=== PATIENT | female | born 1990 | race African-American/Black ===

== ENCOUNTER 2018-11-16 17:55 | Emergency (ER) | payer BC ==
--- NOTE | 2018-11-16 18:02 | PDOC ---
History of Present Illness - General Chief Complaint: Ear Problem Stated Complaint: FEVER & EAR PAIN Time Seen by Provider: 11/16/18 17:58 History Source: Patient Exam Limitations: No Limitations - History of Present Illness Initial Comments: 11/16/18 18:30 28 yo otherwise healthy F presents with 4 days of fevers, chills, myalgias, and sinus pressure that has progressed to left ear pressure, ringing, and pain. Was seen in urgent care the day of symptom start and discharged with fluticasone and z-pack for sinusitis. Pt has taken meds as directly but has felt no improvement in symptoms. Ear complaints are bilaterally but L > R. Pt states she uses sinus rinse with thick purulent mucus washed out. Endorses occasional dry nonproductive cough, mild lightheadedness, and some nausea. Lightheadedness and nausea has been improving. Denies sick contact, changes in vision, changes in mental status, chest pain, SOB, vomiting, abd pain, diarrhea, and dysuria. PMH: none MED: none NKDA Past History - Past Medical History Allergies/Adverse Reactions: Allergies Allergy/AdvReac Type Severity Reaction Status Date / Time amoxicillin Allergy Unknown Verified 11/16/18 17:57 Home Medications: Ambulatory Orders Azithromycin [Zithromax -] 250 mg PO UTDICT 11/16/18 Fluticasone Prop 0.05% Nasal [Flonase -] 1 - 2 spray NS BID 11/16/18 123/Iron/Folic/Omeg3s [One-A-Day 1 Dha Sfgl] 1 each PO DAILY 11/16/18 levoFLOXacin [Levaquin -] 500 mg PO DAILY #7 tablet 11/16/18 Review of Systems - Review of Systems Able to Perform ROS?: Yes Is the patient limited [place] proficient: No Constitutional: Yes: Chills, Fever HEENTM: Yes: See HPI, Ear Pain, Tinnitus, Hearing Loss. No: Eye Pain, Blurred Vision, Tearing, Recent change in vision, Double Vision, Cataracts, Ear Discharge, Throat Pain, Throat Swelling, Mouth Pain, Dental Problems, Difficulty Swallowing, Mouth Swelling, Other Respiratory: Yes: See HPI, Cough (dry cough). No: Orthopnea, Shortness of Breath, SOB with Exertion, SOB at Rest, Stridor, Wheezing, Productive cough, Hemoptysis, Other Cardiac (ROS): Yes: See HPI. No: Irregular Heart Rate, Palpitations, Chest Tightness ABD/GI: Yes: See HPI. No: Abdominal Distended, Abd. Pain w/ defecation, Blood Streaked Bowels, Constipated, Diarrhea, Difficulty Swallowing, Poor Appetite, Poor Fluid Intake, Rectal Bleeding, Vomiting, Indigestion, Abdominal cramping, Tarry Stools, Other : No: Symptoms Reported, See HPI, Burning, Dysuria, Discharge, Frequency, Flank Pain, Hematuria, Incontinence, Pain, Urgency, Testicular Mass, Testicular Swelling, Lesions, Testicular Pain, Other Musculoskeletal: Yes: See HPI (myalgias ). No: Back Pain, Gout, Joint Pain, Joint Swelling, Muscle Pain, Muscle Weakness, Neck Pain, Joint Stiffness, Other Integumentary: No: Symptoms Reported, See HPI, Bruising, Change in Color, Change in Hair/Nails, Dryness, Erythema, Flushing, Lesions, Lumps, Pallor, Pruritus, Rash, Sweating, Other Neurological: No: Symptoms reported, See HPI, Headache, Numbness, Paresthesia, Pre-Existing Deficit, Seizure, Tingling, Tremors, Weakness, Unsteady Gait, Ataxia, Dizziness, Other Psychiatric: No: Anxiety, Depression, Frequent Crying, Stressors, Sleep Pattern Change, Emotional Problems, Mood Swings, Change in Appetite, Other Endocrine: No: Symptoms Reported, See HPI, Excessive Sweating, Flushing, Intolerance to Cold, Intolerance to Heat, Increased Hunger, Increased Thirst, Increased Urine, Unexplained Weight Gain, Unexplained Weight Loss, Change in Weight, Other Hematologic/Lymphatic: No: Symptoms Reported, See HPI, Anemia, Blood Clots, Easy Bleeding, Easy Bruising, Bleeding Diathesis, Lymph Node Abnormalities, Swollen Glands, Other All Other Systems: Reviewed and Negative *Physical Exam - Physical Exam Comments: 11/16/18 18:48 GEN: Resting comfortably in bed, NAD. Skin is warm and moist to the touch. HEENT: (+) TTP right maxillary sinus. neg ttp of frontal and mastoid sinuses. Right ear - pain with pulling of pinna, EAC clear, TM clear. Left ear - no pain with pulling, EAC clear, there is pus behind TM. Enlarged tonsils, no posterior pharynx erythema or drainage. Enlarged nasal turbinates b/l. Voice is not muffled. NC/AT, EOMI, PERRLA, CN II-XII intact. Moist mucous membranes. CV: S1/S2, RRR, no m/r/g LUNG: CTAB, no wheezes, crackles, rales, rhonchi. Normal respiratory effort, no accessory muscle use, no retractions. GI: soft, ndnt, +BS NEURO: AAOx3, conversing appropriately, moving all extremities. 11/16/18 18:53 11/16/18 19:00 ED Treatment Course - LABORATORY CBC & Chemistry Diagram: 11/16/18 18:50 11/16/18 18:50 Medical Decision Making - Medical Decision Making 11/16/18 18:53 28 yo otherwise healthy F presenting with fevers, chills, and sinus pressure that has progressed to ear pain, pressure, and decreased hearing after azithromycin for 3 days. Exam significant for right maxillary sinus pain, pain w / pulling of right pinna, enlarged tonsils, and purulence behind Left TM. Patient meets criteria for treatment failure and we are considering alternative antibiotic coverage. DDx- Sinusitis, Gn/Ch throat, mastoiditis, mononucleosis Ear pressure, chills/fever, sinus pressure - CBC, BMP, Blood Cx - Throat Cx, Gn/Ch swab, EBV IgM/IgG - IV, tylenol Dispo: home w/ abx *DC/Admit/Observation/Transfer Diagnosis at time of Disposition: Sinusitis Qualifiers: Sinusitis location: pansinusitis Chronicity: acute Recurrence: non-recurrent Qualified Code(s): J01.40 - Acute pansinusitis, unspecified - Discharge Dispostion Disposition: HOME Condition at time of disposition: Stable - Prescriptions Prescriptions: levoFLOXacin [Levaquin -] 500 mg PO DAILY #7 tablet - Referrals Referrals: Irene Engle MD [Primary Care Provider] - Adrien Murray MD [Staff Physician] - 2 Days - Patient Instructions Printed Discharge Instructions: Sinusitis Additional Instructions: Stop azithromycin Begin Levaquin 500 mg daily for the next week Follow-up with Dr. Murray, digital strategy director within the next 3-4 days (call office Sunday, 11/09 9 AM to arrange appointment) If Dr. Murray is not available this week, follow-up with your general doctor within the next 3-4 days Tylenol/Motrin/Aleve as needed for pain and fever; drink plenty of fluids Return to ER if you have persistent high fever or increase in pain - Post Discharge Activity
[2018-11-16 18:08] VITALS: BP 137/94; BMI 39.9
[2018-11-16] MEDS ORDERED: ACETAMINOPHEN 1000 MG/100 ML VIAL (NON FORMULARY) IVPB ONE (18:38)
[2018-11-16] MEDS ORDERED: ACETAMINOPHEN INJECTION 100 ML IVPB ONE (18:45)
[2018-11-16] MEDS ORDERED: SODIUM CHLORIDE 1,000 ML IV STA (18:52)
--- NOTE | 2018-11-16 18:58 | PDOC ---
Documentation entered by Beltran Christensen SCRIBE, acting as scribe for Paola Pierre MD. Paola Pierre MD: This documentation has been prepared by the Fermin win Daniel, SCRIBE, under my direction and personally reviewed by me in its entirety. I confirm that the documentation accurately reflects all work, treatment, procedures, and medical decision making performed by me. Attending Attestation - Resident Resident Name: DericCheng - ED Attending Attestation I have performed the following: I have examined & evaluated the patient, The case was reviewed & discussed with the resident, I agree w/resident's findings & plan, Exceptions are as noted - HPI HPI: 11/16/18 18:29 The patient is a 28 year old female with no past medical history here today for evaluation of left ear pain and fever. The patient reports that she has had 4 days of fever, chills, sinus pressure, and myalgia. She reports going to an urgent care facility 3 days ago where she was given a Z-pack. She notes that her symptoms have continued and now has left ear ringing, pain, and decreased hearing for 1 day as well as a dry cough. She also notes that she does sinus rinses that produce thick yellow sputum. Patient denies headache, lightheadedness. Denies chest pain, shortness of breath. Denies nausea, vomiting, diarrhea, abdominal pain. Denies lower extremity edema. Denies urinary symptoms. Allergies: amoxicillin PCP: Irene Engle - Physicial Exam PE: GENERAL: Awake, alert, and fully oriented, in no acute distress HEAD: No signs of trauma EYES: PERRLA, EOMI, sclera anicteric, conjunctiva clear ENT: Auricles normal inspection, hearing grossly normal. Nares with boggy turbinates B/L. Oropharynx erythematous, no exudates, +B/L tonsillar hypertrophy. Moist mucosa. R TM erythematous with clear effusion. L TM erythematous with purulent effusion, bulging. NECK: Normal ROM, supple. No JVD or masses. +Anterior cervical lymphadenopathy B /L LUNGS: Breath sounds equal, clear to auscultation bilaterally. No wheezes, and no crackles HEART: Regular rate and rhythm, normal S1 and S2, no murmurs, rubs or gallops ABDOMEN: Soft, nontender, normoactive bowel sounds. No guarding, no rebound. No masses EXTREMITIES: Normal range of motion, no edema. No clubbing or cyanosis. No cords, erythema, or tenderness NEUROLOGICAL: Cranial nerves II through XII grossly intact. Normal speech, normal gait. Motor and sensation intact SKIN: Warm, dry, normal turgor, no rashes or lesions noted. - Medical Decision Making 11/16/18 18:55 Pt appears nontoxic. She has been taking azithro for sinus infection (history of amox allergy), now on day 3 without improvement. She continues to have fevers. With signs of otitis media on the L. Will consider alternative sources of infection- pharyngeal gonorrhea, EBV, or failure of initial antibiotic treatment. Will give IV fluids, check labs, give antipyretics. Will increase antibiotic coverage.
[2018-11-16 19:22] LABS: HEMATOCRIT 34.4 % (32.4-45.2); HEMOGLOBIN 11.7 GM/dl (10.7-15.3); MCH 29.7 pg (25.7-33.7); MEAN CELL VOLUME 87.4 fl (80-96); MEAN PLT VOLUME 7.8 fl (7.5-11.1); PLATELET COUNT 394 K/MM3 (134-434); RBC 3.94 M/mm3 (3.60-5.2); RDW 12.4 % (11.6-15.6)
--- NOTE | 2018-11-16 19:28 | PDOC ---
*Physical Exam - Vital Signs Last Vital Signs Temp Pulse Resp BP Pulse Ox 100.0 F H 114 H 16 137/94 100 11/16/18 17:56 11/16/18 17:56 11/16/18 17:56 11/16/18 17:56 11/16/18 17:56 ED Treatment Course - LABORATORY CBC & Chemistry Diagram: 11/16/18 18:50 11/16/18 18:50 - Medications Given in the ED: ED Medications Discontinued Medications Generic Name Dose Route Start Last Admin Trade Name Nicholas PRN Reason Stop Dose Admin Acetaminophen 1,000 mg 11/16/18 18:38 11/16/18 19:00 Ofirmev Injection - IVPB 11/16/18 18:39 1,000 mg ONCE ONE Administration Progress Note - Progress Note Progress Note: Care of this patient received from Dr. Pierre. This otherwise healthy 28-year-old woman presents with a few day history of facial pain and bilateral ear pain (the latter symptom occurring over the last day). She has been prescribed azithromycin (on the third day of 5 day course) without significant relief. Patient interviewed and examined. Laboratory evaluation notable for white blood cell count of 16,000 with left shift. Other than random glucose 160, no significant other abnormality on labs. Quick strep negative; remainder of the labs pending On exam, the patient has marked tenderness of her bilateral maxillary and frontal sinuses. Tympanic membranes are also mildly inflamed, left greater than right Clinical presentation most consistent at this time with acute sinusitis, not responding to antibiotic treatment. will change antibiotic to fluoroquinolone: Levaquin 500 mg daily for 7 days with first dose given here in the emergency room. Patient has no previous history of sinus or ear infection. Referral information for ,ENT given to the patient; she states that she will follow-up with him in the next few days. If he is not available, the patient should still have re-evaluation. She will follow-up with her PMD in that case. If she has persistent severe pain or high fever, she should return to the ER *DC/Admit/Observation/Transfer Diagnosis at time of Disposition: Sinusitis Qualifiers: Sinusitis location: pansinusitis Chronicity: acute Recurrence: non-recurrent Qualified Code(s): J01.40 - Acute pansinusitis, unspecified - Discharge Dispostion Disposition: HOME Condition at time of disposition: Stable - Prescriptions Prescriptions: levoFLOXacin [Levaquin -] 500 mg PO DAILY #7 tablet - Referrals Referrals: Irene Engle MD [Primary Care Provider] - Adrien Murray MD [Staff Physician] - 2 Days - Patient Instructions Printed Discharge Instructions: Sinusitis Additional Instructions: Stop azithromycin Begin Levaquin 500 mg daily for the next week Follow-up with Dr. Murray, drafter assistant within the next 3-4 days (call office Sunday, 11/09 9 AM to arrange appointment) If Dr. Murray is not available this week, follow-up with your general doctor within the next 3-4 days Tylenol/Motrin/Aleve as needed for pain and fever; drink plenty of fluids Return to ER if you have persistent high fever or increase in pain - Post Discharge Activity
[2018-11-16 19:38] LABS: CALCIUM 8.6 mg/dl (8.5-10); CREATININE 0.8 mg/dl (0.55-1.3); POTASSIUM 3.8 mmol/L (3.5-5.1)
[2018-11-16 19:55] VITALS: PULSE 100; TEMP 98.8
[2018-11-19 00:05] LABS: EPSTEIN BARR ANTIBODY IgM <36.0 U/mL (0.0-35.9)
== END 2018-11-16 20:26 | disposition home or self-care (01) ==
LOC: FER 17:55
PROC: 3E033NZ Introduction of Analgesics, Hypnotics, Sedatives into Peripheral Vein, Percutaneous Approach (ICD-10-PCS; principal; 2018-11-16)
PROC: 3E0337Z Introduction of Electrolytic and Water Balance Substance into Peripheral Vein, Percutaneous Approach (ICD-10-PCS; 2018-11-16)
DX: J01.40 Acute pansinusitis, unspecified (principal)
CPT/HCPCS: 36415; 80048; 85025; 86665; 87040; 87070; 87880; 99283-25; J0131; J7030